=== PATIENT | male | born 1975 | race Caucasian/White ===

== ENCOUNTER 2020-07-30 09:50 | Outpatient (CLI) | payer OTHER | END 2020-07-30 09:51 | disposition home or self-care (01) | LOC: COV 09:50 | PROVIDERS: ATTEND Family Medicine | DX: R05 Cough (principal); R06.02 Shortness of breath; R53.83 Other fatigue; R19.7 Diarrhea, unspecified; R43.9 Unspecified disturbances of smell and taste; J34.89 Other specified disorders of nose and nasal sinuses; Z20.822 Contact with and (suspected) exposure to COVID-19 ==